=== PATIENT | male | born 1950 | race Caucasian/White ===

== ENCOUNTER 2020-05-01 13:02 | Outpatient (CLI) | payer MEDICARE, MEDICAID ==
[~2020-05-01 13:02] MED LIST: CLON-528 PO; CLOP75TA34 PO; FENO160T PO; GABA-532 PO; HYDR-3972 PO; INSU100V9 SQ; LISI-600 PO; METF-900 PO; PIOG15TA8 PO; PIRO20CA2 PO; RAMI5CAP65 PO; SIMV40TA PO
[2020-05-01 13:57] LABS: BLOOD UREA NITROGEN 23 MG/DL (7-18); CREATININE 1.82 MG/DL (0.60-1.10); eGFR 37 ML/MIN
== END 2020-05-01 23:59 | disposition home or self-care (01) ==
LOC: LAB 13:02
PROVIDERS: ATTEND Surgery
DX: Z01.818 Encounter for other preprocedural examination (principal)
CPT/HCPCS: 36415; 82565; 84520

== ENCOUNTER 2020-05-09 08:40 | Day surgery (SDC) | payer MEDICARE, MEDICAID ==
[~2020-05-09] VITALS: Ht 167.6 cm; Wt 95.3 kg
[~2020-05-09 08:40] MED LIST changes: -LISI-600 PO; +LISI20TA28 PO
[2020-05-09] MEDS ORDERED: sodium bicarbonate (8.4%) inj. 150 ML in dextrose 5%-water 1,000 ML IV ONE (09:30)
[2020-05-09 10:00] VITALS: BP 170/83
[2020-05-09] MEDS ORDERED: iohexol 350MG/ML 100ml bottle IV ONE (10:00)
--- NOTE | 2020-05-09 11:25 | NUR ---
Pt finished first hour of hydration. Pt taken to CTA scan with W/C. Addendum: 05/09/20 at 1337 by Eric Camarena RN Amended: Links added.
--- NOTE | 2020-05-09 11:40 | NUR ---
Pt returned to room for the completion of hydration via W/C Addendum: 05/09/20 at 1337 by Eric Camarena RN Amended: Links added.
== END 2020-05-09 16:20 | disposition home or self-care (01) ==
LOC: SSTAY O 08:40
PROVIDERS: ATTEND Surgery
DX: I71.4 Abdominal aortic aneurysm, without rupture (principal)
CPT/HCPCS: 71275; 74174; Q9967

== ENCOUNTER 2023-09-21 17:43 | Emergency (ER) | payer BC, MEDICAID ==
[~2023-09-21] VITALS: Ht 170.2 cm; Wt 91.4 kg
[~2023-09-21 17:43] MED LIST changes: -CLON-528 PO; -METF-900 PO; -RAMI5CAP65 PO; +RAMI5CAP71 PO; +SIMV-343 PO; -SIMV40TA PO
[2023-09-21 17:53] VITALS: BP 129/76; PULSE 89; RESP 16; TEMP 98.8; O2SAT 97
[2023-09-21 18:31] LABS: HEMOGLOBIN 11.4 g/dl (14.0-17.9); MEAN CORPUSCULAR HGB CONC 33.2 g/dL (33.0-36.5); WHITE BLOOD COUNT 3.8 X10'3 (4.5-11.0)
[2023-09-21 18:33] LABS: EOSINOPHILS # (AUTO) 0.1 X10'3 (0-0.9); EOSINOPHILS % (AUTO) 2.2 % (0-6); HEMATOCRIT 34.2 % (42.0-52.0); LYMPHOCYTES # (AUTO) 0.8 X10'3 (1.1-4.8); LYMPHOCYTES % (AUTO) 21.3 % (21-51); MEAN CORPUSCULAR HEMOGLOBIN 33.9 PG (27.0-31.0); MEAN CORPUSCULAR VOLUME 102.2 FL (78-98); MONOCYTES # (AUTO) 0.5 X10'3 (0-0.9); MONOCYTES % (AUTO) 13.1 % (2-12); NEUTROPHILS # (AUTO) 2.4 X10'3 (1.8-7.7); NEUTROPHILS % (AUTO) 62.4 % (42-75); PLATELET COUNT 156 X10'3 (140-440); RED BLOOD COUNT 3.35 X10'6 (4.70-6.10)
[2023-09-21 18:50] LABS: ALBUMIN 3.6 G/DL (3.4-5.0); ANION GAP 12 (8-16); BLOOD UREA NITROGEN 37 MG/DL (7-18); BUN/CREATININE RATIO 15.1 (10.0-20.0); CALCIUM 8.8 MG/DL (8.5-10.1); CHLORIDE 105 MMOL/L (99-107); CREATININE 2.45 MG/DL (0.60-1.10); GLUCOSE 125 MG/DL (70-104); POTASSIUM 4.1 MMOL/L (3.5-5.1); PRO BRAIN NATRIURETIC PEPTIDE 817 PG/ML (0-125); SODIUM 140 MMOL/L (135-145); TOTAL CARBON DIOXIDE 22.8 MMOL/L (24-32); eCRCL 26 ML/MIN; eGFR 26 ML/MIN
== END 2023-09-21 20:33 | disposition left against medical advice (07) ==
LOC: ER 17:43
DX: R06.02 Shortness of breath (principal); Z53.21 Procedure and treatment not carried out due to patient leaving prior to being seen by health care provider
CPT/HCPCS: 36415; 80048; 83880; 84484; 85025